=== PATIENT | female | born 1975 | race Caucasian/White ===

== ENCOUNTER 2019-04-07 21:24 | Observation (INO) | payer SELFPAY ==
[~2019-04-07] VITALS: Ht 157.5 cm; Wt 90.0 kg
[2019-04-07 22:10] LABS: HEMATOCRIT 40.8 % (37.0-47.0); HEMOGLOBIN 14.2 g/dl (12.0-16.0); IMMATURE GRANULOCYTES 0.3 % (0.0-5.0); MEAN CELL VOLUME 88.1 fL CALC (80.0-100.0); MEAN CORPUSCULAR HGB 30.7 pG CALC (26.0-32.0); MEAN CORPUSCULAR HGB CONC 34.8 g/L CALC (32.0-36.0); NEUT# 6.56 thou/uL (2.00-7.15); RED BLOOD COUNT 4.63 mill/uL (4.20-5.60); RED CELL DISTRI WIDTH 13.2 % (11.5-15.5)
[2019-04-07] MEDS ORDERED: LEVOTHYROXIN25 MC1 PO (22:14)
[2019-04-07] MEDS ORDERED: FERROUS SULF325 M2 PO (22:14)
[2019-04-07] MEDS ORDERED: PROMETHAZINE12.5 M4 PO (22:15)
[2019-04-07] MEDS ORDERED: ZESTRIL10 M1 PO (22:16)
[2019-04-07] MEDS ORDERED: ALBUTEROL SUL0.083 % IN (22:18)
[2019-04-07] MEDS ORDERED: NITROGLYCERIN0.4 MG SL (22:19)
[2019-04-07] MEDS ORDERED: ZOFRAN4 MG/TAB PO (22:19)
[2019-04-07 22:20] LABS: ALBUMIN 3.9 g/dL (3.2-5.0); ALKALINE PHOSPHATASE 76 u/l (38-126); AMYLASE 38 u/l (30-110); ANION GAP 13 (6-22 (CALC)); BILIRUBIN, TOTAL 0.3 mg/dL (0.0-1.4); BUN 5 mg/dL (7-17); BUN/CREATININE RATIO 9 (12-20 (CALC)); CARBON DIOXIDE 25 mmol/l (22-30); CHLORIDE 102 mmol/l (95-108); CREATININE 0.5 mg/dL (0.5-1.0); GFR > 60 ML/MIN (>=60 (CALC)); GFR FOR AFR.AMER. > 60 ML/MIN (>=60 (CALC)); LIPASE 33 u/l (23-300); POTASSIUM 3.4 mmol/l (3.5-5.1); SGOT/AST 35 u/l (14-36); SODIUM 137 mmol/l (137-146); TOTAL PROTEIN 7.4 g/dL (6.3-8.2)
[2019-04-07] MEDS ORDERED: CITALOPRAM20 M1 PO (22:20)
[2019-04-07] MEDS ORDERED: SYMBICORT1 AE1 IN (22:21)
[2019-04-07] MEDS ORDERED: HYDROXYZINE PAM25 MG PO (22:22)
[2019-04-07] MEDS ORDERED: LASIX 20 MG TAB20 MG PO (22:23)
[2019-04-07] MEDS ORDERED: ATORVASTATIN CA10 MG PO (22:24)
[2019-04-07] MEDS ORDERED: PROAIR HFA108 MCG/AC IN (22:24)
[2019-04-07] MEDS ORDERED: DICYCLOMINE20 MG PO (22:25)
[2019-04-07] MEDS ORDERED: CYCLOBENZAPR10 MG PO (22:26)
[2019-04-07] MEDS ORDERED: POTASSIUM CHLO10 MEQ PO (22:26)
[2019-04-07] MEDS ORDERED: DOK100 MG PO (22:27)
[2019-04-07] MEDS ORDERED: JANUVIA100 MG PO (22:27)
[2019-04-07 22:28] LABS: ACT PARTIAL THROMBO TIME 26.9 SECONDS (20.0-32.5); D-DIMER 0.21 mg/L (0.19-0.60); PROTHROMBIN TIME 10.6 SECONDS (9.0-12.5)
[2019-04-07] MEDS ORDERED: RANITIDINE300 MG PO (22:28)
[2019-04-07 22:30] LABS: MYOGLOBIN 27 ng/mL (0 - 62)
[2019-04-07 22:56] LABS: URINE BILIRUBIN - DIPSTICK NEGATIVE (NEGATIVE); URINE BLOOD DIPSTICK NEGATIVE (NEGATIVE); URINE COLOR YELLOW; URINE GLUCOSE - DIPSTICK NEGATIVE (NEGATIVE); URINE KETONE NEGATIVE (NEGATIVE); URINE LEUK ESTERASE NEGATIVE (NEGATIVE); URINE NITRITE - DIPSTICK NEGATIVE (Negative); URINE PROTEIN - DIPSTICK NEGATIVE (NEG-TRACE); URINE SPECIFIC GRAVITY <=1.005; URINE UROBILINOGEN - DIPSTICK 0.2 E.U./dL (0.2)
[2019-04-07 23:41] VITALS: BP 133/64
[2019-04-08 04:00] VITALS: BP 134/74
[2019-04-08 04:00] LABS: VLDL CHOLESTROL 135 mg/dl (1-41 (CALC))
[2019-04-08 04:01] LABS: TOTAL TRIGLYCERIDES 673 mg/dl (30-149)
[2019-04-08 04:02] LABS: CHOLESTEROL HDL RATIO 6.3 (<4.4 (CALC)); HDL CHOLESTEROL 24 mg/dL (>=40); TOTAL CHOLESTEROL 151 mg/dl (0-199)
[2019-04-08 08:00] VITALS: BP 142/80
[2019-04-08 10:00] VITALS: BP 150/78
[2019-04-08 13:35] VITALS: BP 146/76
[2019-04-08 15:00] VITALS: BP 150/70
[2019-04-08 19:24] VITALS: BP 148/87
[2019-04-09 00:13] VITALS: BP 97/40
[2019-04-09 04:51] VITALS: BP 104/56
[2019-04-09 08:00] VITALS: BP 128/73
[2019-04-09] MEDS ORDERED: PLAVIX75 MG PO (08:24)
[2019-04-09] MEDS ORDERED: PEPCID20 MG PO (08:24)
[2019-04-09] MEDS ORDERED: PROMETHAZINE12.5 M4 PO (08:24)
[2019-04-09] MEDS ORDERED: CARVEDILOL3.125 MG PO (08:24)
[2019-04-09] MEDS ORDERED: SYMBICORT1 AE1 IN (08:24)
[2019-04-09] MEDS ORDERED: LEVOTHYROXIN25 MC1 PO (08:24)
[2019-04-09 12:00] VITALS: BP 119/64
== END 2019-04-09 13:00 | disposition home or self-care (01) | DRG 303 ==
LOC: ED 21:24 → ED-I 22:55 → ED 23:15 → ICU 23:16
PROVIDERS: Family Medicine; ADMIT Internal Medicine; ATTEND Internal Medicine
DX: I25.118 Atherosclerotic heart disease of native coronary artery with other forms of angina pectoris (principal); I10 Essential (primary) hypertension; E11.9 Type 2 diabetes mellitus without complications; J44.9 Chronic obstructive pulmonary disease, unspecified; I25.2 Old myocardial infarction; F17.210 Nicotine dependence, cigarettes, uncomplicated; T38.3X6A Underdosing of insulin and oral hypoglycemic [antidiabetic] drugs, initial encounter; T50.916A Underdosing of multiple unspecified drugs, medicaments and biological substances, initial encounter; Z91.120 Patient's intentional underdosing of medication regimen due to financial hardship; E78.5 Hyperlipidemia, unspecified; F41.9 Anxiety disorder, unspecified; F32.9 Major depressive disorder, single episode, unspecified; E03.9 Hypothyroidism, unspecified; Z23 Encounter for immunization; Z91.11 Patient's noncompliance with dietary regimen; Z88.6 Allergy status to analgesic agent; Z79.4 Long term (current) use of insulin
CPT/HCPCS: J1650

== ENCOUNTER 2019-04-17 02:16 | Observation (INO) | payer SELFPAY ==
[~2019-04-17] VITALS: Ht 157.5 cm; Wt 90.2 kg
[~2019-04-17 02:16] MED LIST: ALBUTEROL SUL0.083 % IN; ATORVASTATIN CA10 MG PO; CARVEDILOL3.125 MG PO; CITALOPRAM20 M1 PO; CYCLOBENZAPR10 MG PO; DICYCLOMINE20 MG PO; DOK100 MG PO; FERROUS SULF325 M2 PO; HYDROXYZINE PAM25 MG PO; JANUVIA100 MG PO; LASIX 20 MG TAB20 MG PO; LEVOTHYROXIN25 MC1 PO; NITROGLYCERIN0.4 MG SL; PEPCID20 MG PO; PLAVIX75 MG PO; POTASSIUM CHLO10 MEQ PO; PROAIR HFA108 MCG/AC IN; PROMETHAZINE12.5 M4 PO; RANITIDINE300 MG PO; SYMBICORT1 AE1 IN; ZESTRIL10 M1 PO; ZOFRAN4 MG/TAB PO
--- NOTE | 2019-04-17 02:40 | NUR ---
PT. TO ROOM 8 VIA EMS WITH C/O CP STARTING THIS AM. PT. WAS DISCHARGED [facility] LAST WEEK WITH THE SAME COMPLAINT. SKIN WARM AND DRY TO TOUCH, COLOR WNL, RESP. EVEN AND UNLABORED. PT. STYATES HER CP IS A 6 ON A SCALE OF 1-10.
[2019-04-17 02:56] LABS: HEMATOCRIT 39.2 % (37.0-47.0); HEMOGLOBIN 13.8 g/dl (12.0-16.0); IMMATURE GRANULOCYTES 0.3 % (0.0-5.0); MEAN CELL VOLUME 87.7 fL CALC (80.0-100.0); MEAN CORPUSCULAR HGB 30.9 pG CALC (26.0-32.0); MEAN CORPUSCULAR HGB CONC 35.2 g/L CALC (32.0-36.0); NEUT# 7.35 thou/uL (2.00-7.15); RED BLOOD COUNT 4.47 mill/uL (4.20-5.60); RED CELL DISTRI WIDTH 13.2 % (11.5-15.5)
[2019-04-17 03:17] LABS: ALBUMIN 3.8 g/dL (3.2-5.0); ALKALINE PHOSPHATASE 81 u/l (38-126); AMYLASE 39 u/l (30-110); ANION GAP 12 (6-22 (CALC)); BILIRUBIN, TOTAL 0.4 mg/dL (0.0-1.4); BUN 9 mg/dL (7-17); BUN/CREATININE RATIO 17 (12-20 (CALC)); CARBON DIOXIDE 25 mmol/l (22-30); CHLORIDE 102 mmol/l (95-108); CREATININE 0.6 mg/dL (0.5-1.0); GFR > 60 ML/MIN (>=60 (CALC)); GFR FOR AFR.AMER. > 60 ML/MIN (>=60 (CALC)); LIPASE 96 u/l (23-300); POTASSIUM 3.4 mmol/l (3.5-5.1); SGOT/AST 27 u/l (14-36); SODIUM 136 mmol/l (137-146); TOTAL PROTEIN 7.4 g/dL (6.3-8.2)
[2019-04-17 03:29] LABS: MYOGLOBIN 24 ng/mL (0 - 62)
--- NOTE | 2019-04-17 03:33 | NUR ---
PO MAGIC MOUTH WAS, IV PROTONIX AND NITROPASTE GIVEN PER MD ORDER.
--- NOTE | 2019-04-17 04:23 | NUR ---
PT. STATES HER CP IS COMPLETLY RESOLVED OF THIS TIME.
[2019-04-17 04:57] LABS: URINE BILIRUBIN - DIPSTICK NEGATIVE (NEGATIVE); URINE BLOOD DIPSTICK NEGATIVE (NEGATIVE); URINE COLOR YELLOW; URINE GLUCOSE - DIPSTICK NEGATIVE (NEGATIVE); URINE KETONE NEGATIVE (NEGATIVE); URINE LEUK ESTERASE NEGATIVE (NEGATIVE); URINE NITRITE - DIPSTICK NEGATIVE (Negative); URINE PROTEIN - DIPSTICK NEGATIVE (NEG-TRACE); URINE SPECIFIC GRAVITY 1.015; URINE UROBILINOGEN - DIPSTICK 0.2 E.U./dL (0.2)
--- NOTE | 2019-04-17 05:34 | NUR ---
MD IN ROOM TO DISCUSS CLINICAL FINDINGS WITH PT. AND ALSO MAKE HER AWARE OF ADMISSION. VERBALIZED UNDERSTANDING.
--- NOTE | 2019-04-17 05:40 | NUR ---
IVANNAAR SENT TO M/[facility]
--- NOTE | 2019-04-17 06:14 | NUR ---
Admission Note Report Given to: ANDREW FIELD Transported by: Wheelchair X Stretcher Transported with: X Nurse Transporter X Patent IV O2 X Cook Fish [employer] Chips
--- NOTE | 2019-04-17 06:20 | NUR ---
PT. TAKEN TO [place] FLOOR VIA STRETCHER, NO C/O.
--- NOTE | 2019-04-17 06:25 | NUR ---
PT ARRIVED TO FLOOR IN STABLE CONDITION VIA STRETCHER ACCOMPAINED BY ER STAFF. NO APPARENT DISTRESS NOTED. PT AMBULATED FROM STRETCHER TO BED WIT STEADY GAIT. VS AND WEIGHT OBTAINED. ORIENTED TO ROOM AND CALL LIGHT SYSTEM. CALL LIGHT WITHIN REACH. WILL CONTINUE TO MONITOR.
[2019-04-17 06:34] VITALS: BP 130/73
[2019-04-17 06:37] LABS: BARBITURATES NEGATIVE (NEGATIVE); COCAINE NEGATIVE (NEGATIVE); METHADONE NEGATIVE (NEGATIVE); OXCYCODONE NEGATIVE (NEGATIVE); TETRAHYDROCANNABIONOL NEGATIVE (NEGATIVE); TRICYLIC ANTIDEPRESSANTS POSITIVE (NEGATIVE)
[2019-04-17 08:47] VITALS: BP 135/71
[2019-04-17 11:17] VITALS: BP 120/65
[2019-04-17 15:32] VITALS: BP 157/91
== END 2019-04-17 20:00 | disposition home or self-care (01) | DRG 313 ==
LOC: ED 02:16 → ED-I 02:22 → ED 05:41 → MS2 05:42
PROVIDERS: Emergency Medicine; ADMIT Internal Medicine; ATTEND Internal Medicine
DX: R07.2 Precordial pain (principal); E11.9 Type 2 diabetes mellitus without complications; I10 Essential (primary) hypertension; J43.9 Emphysema, unspecified; I25.10 Atherosclerotic heart disease of native coronary artery without angina pectoris; E78.5 Hyperlipidemia, unspecified; E03.9 Hypothyroidism, unspecified; F17.210 Nicotine dependence, cigarettes, uncomplicated; F41.9 Anxiety disorder, unspecified; F32.9 Major depressive disorder, single episode, unspecified; I25.2 Old myocardial infarction
CPT/HCPCS: G0378; S0164

== ENCOUNTER 2019-09-21 02:19 | Emergency (ER) | payer SELFPAY ==
[2019-09-21 03:13] LABS: HEMATOCRIT 40.4 % (37.0-47.0); HEMOGLOBIN 13.6 g/dl (12.0-16.0); IMMATURE GRANULOCYTES 0.5 % (0.0-5.0); MEAN CELL VOLUME 88.2 fL CALC (80.0-100.0); MEAN CORPUSCULAR HGB 29.7 pG CALC (26.0-32.0); MEAN CORPUSCULAR HGB CONC 33.7 g/dL CAL (32.0-36.0); NEUT# 7.38 thou/uL (2.00-7.15); RED BLOOD COUNT 4.58 mill/uL (4.20-5.60); RED CELL DISTRI WIDTH 13.5 % (11.5-15.5)
[2019-09-21 03:28] LABS: ALBUMIN 3.9 g/dL (3.2-5.0); ALKALINE PHOSPHATASE 87 u/l (38-126); ANION GAP 9 (6-22 (CALC)); BILIRUBIN, TOTAL 0.3 mg/dL (0.0-1.4); BUN 7 mg/dL (7-17); BUN/CREATININE RATIO 12 (12-20 (CALC)); CARBON DIOXIDE 29 mmol/l (22-30); CHLORIDE 101 mmol/l (95-108); CREATININE 0.6 mg/dL (0.5-1.0); GFR > 60 ML/MIN (>=60 (CALC)); GFR FOR AFR.AMER. > 60 ML/MIN (>=60 (CALC)); LIPASE 47 u/l (23-300); POTASSIUM 3.3 mmol/l (3.5-5.1); SGOT/AST 27 u/l (14-36); SODIUM 136 mmol/l (137-146); TOTAL PROTEIN 7.2 g/dL (6.3-8.2)
[2019-09-21 03:39] LABS: AMYLASE 150 u/l (30-110); MYOGLOBIN 53 ng/mL (0 - 62)
[2019-09-21] MEDS ORDERED: NORCO1 TA2 PO (05:56)
[2019-09-21 07:05] VITALS: BP 124/62
== END 2019-09-21 07:05 | disposition home or self-care (01) | DRG 313 ==
LOC: ED 02:19
PROVIDERS: Emergency Medicine
DX: R07.9 Chest pain, unspecified (principal); E11.9 Type 2 diabetes mellitus without complications; I10 Essential (primary) hypertension; I25.2 Old myocardial infarction; F17.200 Nicotine dependence, unspecified, uncomplicated

== ENCOUNTER 2019-09-30 20:05 | Emergency (ER) | payer SELFPAY ==
[~2019-09-30 20:05] MED LIST changes: +NORCO1 TA2 PO
[2019-09-30] MEDS ORDERED: LISINOPRIL10 M1 PO (20:54)
[2019-09-30] MEDS ORDERED: ATORVASTATIN CA20 MG PO (20:54)
[2019-09-30] MEDS ORDERED: CARVEDILOL3.125 MG PO (20:54)
[2019-09-30] MEDS ORDERED: CELEXA20 MG PO (20:55)
[2019-09-30] MEDS ORDERED: PANTOPRAZOLE SO40 M1 PO (20:55)
[2019-09-30] MEDS ORDERED: CLOPIDOGREL75 MG PO (20:56)
[2019-09-30 22:50] VITALS: BP 147/83
== END 2019-09-30 22:54 | disposition home or self-care (01) | DRG 605 ==
LOC: ED 20:05
DX: S50.812A Abrasion of left forearm, initial encounter (principal); E11.9 Type 2 diabetes mellitus without complications; I10 Essential (primary) hypertension; F17.210 Nicotine dependence, cigarettes, uncomplicated; W18.30XA Fall on same level, unspecified, initial encounter; Y92.009 Unspecified place in unspecified non-institutional (private) residence as the place of occurrence of the external cause

== ENCOUNTER 2020-03-11 01:36 | Observation (INO) | payer BC ==
[~2020-03-11] VITALS: Ht 157.5 cm; Wt 88.1 kg
[~2020-03-11 01:36] MED LIST changes: +ATORVASTATIN CA20 MG PO; +CELEXA20 MG PO; +CLOPIDOGREL75 MG PO; +LISINOPRIL10 M1 PO; +PANTOPRAZOLE SO40 M1 PO
--- NOTE | 2020-03-11 01:36 | NUR ---
PATIENT AMBULATORY TO ROOM 6 FROM EMS STRETCHER. PATIENT UNDRESSED INTO A GOWN, PLACED ON MONITOR. TRIAGE COMPLETED AT BEDSIDE.
[2020-03-11] MEDS ORDERED: LEVOTHYROXINE25 MCG PO (01:50)
[2020-03-11] MEDS ORDERED: GABAPENTIN300 M2 PO (01:51)
[2020-03-11] MEDS ORDERED: LASIX40 MG PO (01:52)
[2020-03-11] MEDS ORDERED: PROMETHAZINE12.5 M4 PO (01:52)
[2020-03-11] MEDS ORDERED: NITROGLYCERIN0.4 MG SL (01:53)
[2020-03-11] MEDS ORDERED: SYMBICORT1 AE1 IN (01:54)
[2020-03-11] MEDS ORDERED: LAMOTRIGINE100 MG PO (01:55)
[2020-03-11] MEDS ORDERED: CARVEDILOL3.125 MG PO (01:55)
[2020-03-11] MEDS ORDERED: SPRINTEC 2828 DAY PO (01:56)
[2020-03-11] MEDS ORDERED: JANUVIA100 MG PO (01:56)
[2020-03-11] MEDS ORDERED: KLONOPIN0.5 M1 PO (01:57)
[2020-03-11] MEDS ORDERED: TRAZODONE50 MG PO (01:57)
[2020-03-11] MEDS ORDERED: SPIRONOLACT25 MG PO (01:58)
[2020-03-11] MEDS ORDERED: PROAIR HFA108 MCG/AC IN (01:59)
[2020-03-11 02:26] LABS: HEMATOCRIT 38.3 % (37.0-47.0); HEMOGLOBIN 12.4 g/dl (12.0-16.0); IMMATURE GRANULOCYTES 0.5 % (0.0-5.0); MEAN CORPUSCULAR HGB 26.2 pG CALC (26.0-32.0); MEAN CORPUSCULAR HGB CONC 32.4 g/dL CAL (32.0-36.0); NEUT# 8.48 thou/uL (2.00-7.15); RED BLOOD COUNT 4.74 mill/uL (4.20-5.60); RED CELL DISTRI WIDTH 16.5 % (11.5-15.5)
[2020-03-11 02:28] LABS: ALBUMIN 3.8 g/dL (3.2-5.0); ALKALINE PHOSPHATASE 101 u/l (38-126); AMYLASE 39 u/l (30-110); BILIRUBIN, TOTAL 0.3 mg/dL (0.0-1.4); BUN 11 mg/dL (7-17); BUN/CREATININE RATIO 17 (12-20 (CALC)); CARBON DIOXIDE 25 mmol/l (22-30); CHLORIDE 102 mmol/l (95-108); CREATININE 0.6 mg/dL (0.5-1.0); GFR > 60 ML/MIN (>=60 (CALC)); GFR FOR AFR.AMER. > 60 ML/MIN (>=60 (CALC)); LIPASE 76 u/l (23-300); SGOT/AST 22 u/l (14-36); SODIUM 137 mmol/l (137-146); TOTAL PROTEIN 7.1 g/dL (6.3-8.2)
--- NOTE | 2020-03-11 02:30 | NUR ---
MEDICATED PER ORDER, HELD SL NTG DUE TO BP DROPPING TO 136/63 ON ITS OWN. NTG PASTE APPLIED TO LISA WALL. PT'S MAIN CONCERN IS HER HEADACHE TO LEFT ORTHODOXY AREA AND BEHIND LEFT EYE. MEDICATED WITH LORTAB WHICH PT STATES SHE CAN TAKE. PT ALSO STATED SHE WEARS 2 L OF 02 AT NIGHT. INFORMED PT HER SAT NOW IS 99-100
[2020-03-11 02:31] LABS: ANION GAP 14 (6-22 (CALC)); MEAN CELL VOLUME 80.8 fL CALC (80.0-100.0); POTASSIUM 4.3 mmol/l (3.5-5.1)
[2020-03-11 02:33] LABS: D-DIMER 1.36 mg/L (0.19-0.60)
[2020-03-11 02:37] LABS: ACT PARTIAL THROMBO TIME 21.7 SECONDS (20.0-32.5); PROTHROMBIN TIME 9.7 SECONDS (9.0-12.5)
[2020-03-11 02:40] LABS: MYOGLOBIN 23 ng/mL (0 - 62)
--- NOTE | 2020-03-11 03:30 | NUR ---
PT TO HAVE CTA, STATES SHE GETS ILL FROM DYE. WILL MEDICATED PRIOR TO TEST. PT AGREES TO PLAN. PT STATES HER CHEST PRESSURE IS COMPLETELY GONE AND HEADACHE BETTER DOWN TO 8/10.
--- NOTE | 2020-03-11 03:50 | NUR ---
2ND IV STARTED TO [facility] FOR CTA. MEDICATED PER ORDER. CT INFORMED.
--- NOTE | 2020-03-11 04:35 | NUR ---
BOTTLE OF WATER GIVEN PER REQUEST
--- NOTE | 2020-03-11 05:10 | NUR ---
CTA NEGATIVE FOR PE.
--- NOTE | 2020-03-11 06:18 | NUR ---
Admission Note Report Given to: WILBER DELA CRUZ Transported by: X Wheelchair Stretcher Transported with: X Nurse Transporter X Patent IV O2 X Lithographic Plate Maker Apprentice Location: ICU X [facility]
--- NOTE | 2020-03-11 06:24 | NUR ---
PT ARRIVED TO MED SURG UNIT VIA WC ACCOMPANIED BY ED NURSE. PT ORIENTED TO ROOM, CALL SYSTEM, BED, LIGHTS AND TV. V/S ARE BEING ASSESSED AT THIS TIME. PT C/O PAIN IN HEAD 10/11 AND CHEST 07/11 AT THIS TIME. PT WALKING AROUND THE ROOM, PLUGGING IN CELL PHONE.
[2020-03-11 06:30] VITALS: BP 132/73
[2020-03-11 06:35] VITALS: BP 132/73
--- NOTE | 2020-03-11 08:25 | NUR ---
PATIENT IS A NEW ADMIT. MEDS TO BE RECONCILLED BY [facility].
[2020-03-11 09:55] LABS: CHOLESTEROL HDL RATIO 3.9 (<4.4 (CALC))
[2020-03-11 10:37] VITALS: BP 123/56
--- NOTE | 2020-03-11 12:00 | NUR ---
PATIENT ASKS TO LEAVE FLOOR TO SMOKE. SMOKING POLICY EXPLAINED. NICODERM PATCH REFUSED
[2020-03-11 16:10] VITALS: BP 115/67
--- NOTE | 2020-03-11 17:33 | NUR ---
PATIENT RESTING IN BED. AT BEDSIDE POSSIBLE DC TOMORROW.
== END 2020-03-11 20:27 | disposition home or self-care (01) | DRG 313 ==
LOC: ED 01:36 → ED-I 05:11 → ED 05:17 → MS2 05:18
PROVIDERS: Family Medicine; ADMIT Internal Medicine; ATTEND Internal Medicine
DX: R07.9 Chest pain, unspecified (principal); R51.9 Headache, unspecified; I25.10 Atherosclerotic heart disease of native coronary artery without angina pectoris; I10 Essential (primary) hypertension; E11.9 Type 2 diabetes mellitus without complications; J43.9 Emphysema, unspecified; K21.9 Gastro-esophageal reflux disease without esophagitis; E03.9 Hypothyroidism, unspecified; F41.9 Anxiety disorder, unspecified; F32.9 Major depressive disorder, single episode, unspecified; E78.5 Hyperlipidemia, unspecified; F17.200 Nicotine dependence, unspecified, uncomplicated; I25.2 Old myocardial infarction; Z20.828 Contact with and (suspected) exposure to other viral communicable diseases
CPT/HCPCS: G0378; Q9967